=== PATIENT | female | born 1950 | race Caucasian/White ===

== ENCOUNTER 2024-03-25 10:54 | Day surgery (SDC) | payer MEDICARE, BC ==
[2024-03-25] MEDS: Proparacaine 0.5% Ophth Soln 15 ML Bottle EYELF ONE ×3 (11:13→11:50)
[2024-03-25] MEDS ORDERED: Ondansetron 4 MG/2 ML SDV IVPUSH PRN (11:15)
[2024-03-25] MEDS: Povidone-Iodine 5% Sterile Ophth Soln 30 ML Bottle EYELF ONE ×3 (11:15→11:50)
[2024-03-25] MEDS: Moxifloxacin 0.5% Ophth Soln 3 ML Bottle EYELF ONE (11:15)
[2024-03-25] MEDS: Phenylephrine 10% Ophth Soln 5 ML Bot EYELF ONE (11:15)
[2024-03-25] MEDS ORDERED: Acetaminophen/Codeine 300-30 MG Tab PO PRN (11:15)
[2024-03-25] MEDS ORDERED: Acetaminophen 325 MG Tab PO PRN (11:15)
[2024-03-25] MEDS: Tropicamide 1% Ophth Soln 15 ML Bottle EYELF ONE (11:16)
[2024-03-25] MEDS: Timolol Maleate 0.5% Ophth Soln 5 ML Bottle EYELF ONE (11:18)
[2024-03-25] MEDS: Cataract Ophth Solution EYELF ONE (11:18)
[2024-03-25] MEDS: Sodium Chloride 0.9% 10 ML Syringe FLUSH PRN (11:21)
[2024-03-25] MEDS: Proparacaine 0.5% Ophth Soln 15 ML Bottle EYERT ONE (11:27)
[2024-03-25] MEDS: Vancomycin 500 MG SDV EYELF ONE (11:47)
[2024-03-25] MEDS: Apraclonidine 0.5% Ophth Soln 5 ML Bot EYELF ONE (11:47)
[2024-03-25] MEDS: Dexamethasone/Neomycin/Polymyxin B Ophth Oint 3.5 GM Tube EYELF ONE (11:48)
[2024-03-25] MEDS: Diclofenac Sodium 0.1% Ophth Soln 5 ML Bottle EYELF ONE (11:48)
[2024-03-25] MEDS: Lidocaine 1% 30 ML SDV ONE (11:50)
== END 2024-03-25 12:30 | disposition home or self-care (01) ==
LOC: DL.SDS 10:54
PROVIDERS: ATTEND Ophthalmology
DX: E11.36 Type 2 diabetes mellitus with diabetic cataract (principal); H25.812 Combined forms of age-related cataract, left eye; E11.65 Type 2 diabetes mellitus with hyperglycemia; I10 Essential (primary) hypertension; I25.2 Old myocardial infarction; E78.2 Mixed hyperlipidemia; I25.10 Atherosclerotic heart disease of native coronary artery without angina pectoris; Z79.4 Long term (current) use of insulin; Z79.84 Long term (current) use of oral hypoglycemic drugs; Z79.899 Other long term (current) drug therapy
CPT/HCPCS: 66984; 82947; A9270; J3370; 00142; 99100; J3490

== ENCOUNTER 2024-05-04 08:54 | Day surgery (SDC) | payer MEDICARE, BC ==
[2024-05-04] MEDS ORDERED: Acetaminophen/Codeine 300-30 MG Tab PO PRN (09:00)
[2024-05-04] MEDS ORDERED: Acetaminophen 325 MG Tab PO PRN (09:00)
[2024-05-04] MEDS ORDERED: Ondansetron 4 MG/2 ML SDV IVPUSH PRN (09:00)
[2024-05-04] MEDS: Phenylephrine 10% Ophth Soln 5 ML Bot EYERT ONE (09:09)
[2024-05-04] MEDS: Timolol Maleate 0.5% Ophth Soln 5 ML Bottle EYERT ONE (09:10)
[2024-05-04] MEDS: Povidone-Iodine 5% Sterile Ophth Soln 30 ML Bottle EYERT ONE ×3 (09:10→10:24)
[2024-05-04] MEDS: Tropicamide 1% Ophth Soln 15 ML Bottle EYERT ONE (09:10)
[2024-05-04] MEDS: Moxifloxacin 0.5% Ophth Soln 3 ML Bottle EYERT ONE (09:10)
[2024-05-04] MEDS: Proparacaine 0.5% Ophth Soln 15 ML Bottle EYERT ONE ×3 (09:10→10:24)
[2024-05-04] MEDS: Cataract Ophth Solution EYERT ONE (09:11)
[2024-05-04] MEDS: Sodium Chloride 0.9% 10 ML Syringe FLUSH PRN (09:11)
[2024-05-04] MEDS: Lidocaine 1% 30 ML SDV ONE ×3 (09:31→10:45)
[2024-05-04] MEDS: Vancomycin 500 MG SDV EYERT ONE ×3 (09:32→10:45)
[2024-05-04] MEDS: Apraclonidine 0.5% Ophth Soln 5 ML Bot EYERT ONE ×2 (09:32→10:46)
[2024-05-04] MEDS: Dexamethasone/Neomycin/Polymyxin B Ophth Oint 3.5 GM Tube EYERT ONE ×2 (09:33→10:47)
[2024-05-04] MEDS: Diclofenac Sodium 0.1% Ophth Soln 5 ML Bottle EYERT ONE ×2 (09:33→10:47)
== END 2024-05-04 10:40 | disposition home or self-care (01) ==
LOC: DL.SDS 08:54
PROVIDERS: ATTEND Ophthalmology
DX: E11.36 Type 2 diabetes mellitus with diabetic cataract (principal); H25.811 Combined forms of age-related cataract, right eye; I10 Essential (primary) hypertension; I25.10 Atherosclerotic heart disease of native coronary artery without angina pectoris; E78.2 Mixed hyperlipidemia; Z79.899 Other long term (current) drug therapy; Z79.84 Long term (current) use of oral hypoglycemic drugs
CPT/HCPCS: A9270-GY; J3370; J3490; V2632